=== PATIENT | female | born 1995 | race Caucasian/White ===

== ENCOUNTER 2023-12-26 20:25 | Emergency (ER) | payer OTHER ==
[2023-12-26] MEDS ORDERED: DULO30CA9 PO (20:36)
[2023-12-26] MEDS ORDERED: ONDA-282 PO (20:36)
[2023-12-26] MEDS: METOCLOPRAMIDE INJ 10MG/2ML VIAL IV ONE (21:36)
[2023-12-26] MEDS: NS 1,000 ML IV ONE (21:36)
[2023-12-26 21:37] VITALS: TEMP 96.6
[2023-12-26 21:43] LABS: BASO % 0.3 % (0.0-1.0); EOS % 0.3 % (0.0-3.0); HEMATOCRIT 39.8 % (36.0-47.0); HEMOGLOBIN 13.4 g/dl (12.0-15.5); LYMPH # 1.4 10^3/uL (1.5-5.0); MEAN CORPUSCULAR HEMOGLOBIN 31.8 pg (27.0-33.0); MEAN CORPUSCULAR HGB CONC 33.7 g/dl (32.0-36.5); MEAN CORPUSCULAR VOLUME 94.5 fl (80.0-96.0); MONO # 0.5 10^3/uL (0.0-0.8); MONO % 3.4 % (2.0-8.0); NEUTROPHILS % 86.5 % (36.0-66.0); PLATELET COUNT, AUTOMATED 294 10^3/uL (150-450); RED BLOOD COUNT 4.21 10^6/uL (4.00-5.40)
[2023-12-26 22:05] LABS: BLOOD UREA NITROGEN 12 MG/DL (9-23); CARBON DIOXIDE LEVEL 29 MMOL/L (20-31); CHLORIDE LEVEL 109 MMOL/L (98-107); CREATININE FOR GFR 0.81 MG/DL (0.55-1.30); GLOMERULAR FILTRATION RATE > 60.0 (>60); GLUCOSE, FASTING 104 MG/DL (60-100); POTASSIUM SERUM 3.6 MMOL/L (3.5-5.1); SODIUM LEVEL 144 MMOL/L (136-145)
[2023-12-26 22:15] VITALS: BP 127/67; O2SAT 98
== END 2023-12-26 22:31 | disposition home or self-care (01) ==
LOC: EDBD 20:25 → M ED 20:25
DX: R51.9 Headache, unspecified (principal); Z79.83 Long term (current) use of bisphosphonates; Z79.899 Other long term (current) drug therapy; Z88.0 Allergy status to penicillin; Z88.5 Allergy status to narcotic agent
CPT/HCPCS: 70450; 80048; 85025; 96361; 96374; 99284; J2765